=== PATIENT | male | born 1995 | race Caucasian/White ===

== ENCOUNTER 2021-07-20 18:55 | Emergency (ER) | payer MEDICAID, SELFPAY ==
--- NOTE | ~2021-07-20 | XR_ITS ---
EXAMINATION: XR CHEST CLINICAL INFORMATION: Shortness of breath and productive cough COMPARISON: None TECHNIQUE: Frontal view of the chest was obtained. FINDINGS: Patchy airspace opacities are evident in the right perihilar region extending into the right upper lobe. The left lung is clear. The cardiac silhouette is not enlarged. Right paratracheal soft tissue presumably reflects reactive adenopathy. XR/XR chest 1V IMPRESSION: Right upper lobe pneumonia and probable reactive adenopathy. Close Follow-up is recommended to confirm clearing. If findings persist, thoracic CT would be recommended.
[2021-07-20 19:56] VITALS: BP 112/73; PULSE 68; RESP 18; TEMP 37; O2SAT 95; BMI 29.1
[2021-07-20 20:59] LABS: MANUAL DIFF FLAG NO
[2021-07-20 21:00] LABS: Basophils Percent Auto 0.5 % (0-2); Eosinophils Absolute Auto 0.8 X10*3/uL (0.0-0.4); Hematocrit 37.6 % (42.0-52.0); Hemoglobin 12.9 g/dl (14.0-18.0); Imm Gran Abs Auto 0.02 X10*3/uL (0.00-0.03); Imm Gran Pct Auto 0.2 % (0.0-0.4); Lymphocytes Absolute Auto 1.7 X10*3/uL (1.2-4.9); Lymphocytes Percent Auto 20.8 % (20-40); Mean Corpuscular HGB Conc 34.3 g/dl (31.0-36.0); Mean Corpuscular Hemoglobin 29.8 pg (27.0-33.0); Mean Corpuscular Volume 86.8 fL (80.0-98.0); Mean Platelet Volume 9.8 fL (9.4-12.4); Monocytes Absolute Auto 0.8 X10*3/uL (0.1-1.2); Monocytes Percent Auto 9.1 % (2-11); Neutrophils Absolute Auto 4.9 x10*3/uL (2.0-8.3); Neutrophils Percent Auto 59.4 % (45-73); Platelet Count 251 X10*3/uL (160-400); Red Blood Count 4.33 X10*6/uL (4.60-5.80); Red Cell Distribution Width 12.1 % (11.0-16.0); White Blood Count 8.2 X10*3/uL (4.8-10.8)
[2021-07-20 21:23] LABS: Anion Gap 13 (12-20); Calcium 9.2 mg/dL (8.4-10.2); Carbon Dioxide 26 mmol/L (22-29); Chloride 104 mmol/L (96-108); Potassium 4.3 mmol/L (3.3-5.1); Sodium 139 mmol/L (135-145)
[2021-07-20 21:32] LABS: Blood Urea Nitrogen 15 mg/dL (9-16); Creatinine Clr Calc Pharmacy 143.7; Estimated Glomerular Filt Rate > 60; Glucose Random 106 mg/dL (60-115)
--- NOTE | 2021-07-20 22:27 | ED.SOB ---
HPI - SOB/Dyspnea General Chief Complaint: Dyspnea Stated Complaint: SOB Time Seen by Provider: 07/20/21 22:13 Related Data Allergies Allergy/AdvReac Type Severity Reaction Status Date / Time No Known Allergies Allergy Verified 07/20/21 20:02 Physical Exam Vital Signs: Vital Signs: Last Vital Signs Temp 98.6 F 07/20/21 19:56 Pulse 68 07/20/21 19:56 Resp 18 07/20/21 19:56 BP 112/73 07/20/21 19:56 Pulse Ox 95 07/20/21 19:56 BMI result Body Mass Index 29.1 Course Course Course Narrative: 26-year-old male who presents emergency department with flu-like illness. Patient had laboratory evaluation a chest x-ray which was concerning for right upper lobe pneumonia. I went into the room to evaluate the patient and he had left without being seen. He was also here with his girlfriend who was patient. I did reach both the patient and his girlfriend and they did agree to come back to the emergency department to be re-evaluated. MDM - SOB/Dyspnea Lab Data Result diagrams: 07/20/21 20:53 07/20/21 20:53 Labs: Lab Results 07/20/21 07/20/21 Range/Units 20:53 20:53 WBC 8.2 (4.8-10.8) X10*3/uL RBC 4.33 L (4.60-5.80) X10*6/uL Hgb 12.9 L (14.0-18.0) g/dl Hct 37.6 L (42.0-52.0) % MCV 86.8 (80.0-98.0) fL MCH 29.8 (27.0-33.0) pg MCHC 34.3 (31.0-36.0) g/dl RDW 12.1 (11.0-16.0) % Plt Count 251 (160-400) X10*3/uL MPV 9.8 (9.4-12.4) fL Immature Gran % (Auto) 0.2 (0.0-0.4) % Neut % (Auto) 59.4 (45-73) % Lymph % (Auto) 20.8 (20-40) % [place] % (Auto) 9.1 (2-11) % Eos % (Auto) 10.0 H (0-4) % Baso % (Auto) 0.5 (0-2) % Lymph # (Auto) 1.7 (1.2-4.9) X10*3/uL [place] # (Auto) 0.8 (0.1-1.2) X10*3/uL Eos # (Auto) 0.8 H (0.0-0.4) X10*3/uL Baso # (Auto) 0.0 (0.0-0.2) X10*3/uL Abs Immat Gran (auto) 0.02 (0.00-0.03) X10*3/uL Absolute Neuts (auto) 4.9 (2.0-8.3) x10*3/uL Absolute Nucleated RBC 0.000 (0.0-0.012) X10*3/uL Nucleated RBC % (auto) 0.0 (0.0-0.2) /100WBC Sodium 139 (135-145) mmol/L Potassium 4.3 (3.3-5.1) mmol/L Chloride 104 (96-108) mmol/L Carbon Dioxide 26 (22-29) mmol/L Anion Gap 13 (12-20) BUN 15 (9-16) mg/dL Creatinine 0.82 (0.5-1.4) mg/dL Estim Creat Clear Calc 143.7 Estimated GFR > 60 Random Glucose 106 (60-115) mg/dL Calcium 9.2 (8.4-10.2) mg/dL Discharge Plan Discharge Clinical Impression: Patient left without being seen Patient Disposition: Left Without Being Seen Interventions: LWBS Worksheet Last Done: 07/20/21 22:23
[2021-07-20 22:35] LABS: COVID-19 Test Negative (Negative); IDNOW Serial# 16C4AD1C; Influenza A Negative (Negative); Influenza B2 Negative (Negative)
== END 2021-07-20 22:40 | disposition left against medical advice (07) ==
PROVIDERS: Emergency Provider Emergency Medicine Emergency Medical Services
DX: R06.02 Shortness of breath (principal); Z20.822 Contact with and (suspected) exposure to COVID-19
CPT/HCPCS: 36415; 71045; 80048; 85025; 87502; 87635; 99281; 99282; 99283; 99284

== ENCOUNTER 2021-07-20 22:41 | Emergency (ER) | payer MEDICAID, SELFPAY ==
[2021-07-20 22:44] VITALS: BP 111/54; PULSE 77; RESP 16; TEMP 36.1; O2SAT 92; BMI 29.0
--- NOTE | 2021-07-21 | ED.SOB ---
HPI - SOB/Dyspnea General Chief Complaint: Dyspnea Stated Complaint: SOB Time Seen by Provider: 07/20/21 23:39 Source: patient Mode of arrival: ambulatory Limitations: no limitations History of Present Illness HPI Narrative: 26-year-old male who presents emergency department for evaluation of cough, shortness of breath, wheezing and fatigue. Patient states he has not been feeling well for approximately 4 weeks. He states that his symptoms have gotten worse over the past week. He states that he has a cough which is occasionally productive of white chunky phlegm occasionally pain phlegm. He states that he feels short of breath and he can hear himself wheeze. He states that he feels short of breath when he walks around. He denied chest pain. He states he is feeling very tired and fatigued. He denied myalgias or arthralgias. He denied nausea, vomiting or diarrhea. The patient does smoke cigarettes and he states that he uses intranasal opiates. He states that 1 year prior he did have a upper respiratory illness and was given an albuterol inhaler. He does not take any medications on a regular basis. MD elicited complaint: shortness of breath and cough Pertinent past history: other (Tobacco use an intranasal opiate use) Onset (ago): week(s) (4) Context: recent illness Timing: constant Severity: moderate Exacerbating factors: exertion and coughing Relieving factors: nothing Known history of: other (Daily tobacco use in intranasal opiate use) Associated symptoms: cough and wheezing Treatment prior to arrival: none Related Data Home oxygen amount: none Previous Rx's Medication Instructions Recorded albuterol sulfate 90 mcg/actuation 2 puff INHALATION Q4-6H PRN #8.5 g 07/21/21 aerosol inhaler (ProAir HFA) albuterol sulfate 90 mcg/actuation 2 puff INHALATION Q4-6H PRN #8.5 g 07/21/21 aerosol inhaler (ProAir HFA) amoxicillin 500 mg tablet 1,000 mg PO Q12H 5 Days #20 tab 07/21/21 azithromycin 250 mg tablet See Rx Instructions PO .COMPLEX #6 07/21/21 (Zithromax Z-Benny) tab prednisone 20 mg tablet 60 mg PO DAILY 5 Days #15 tab 07/21/21 Allergies Allergy/AdvReac Type Severity Reaction Status Date / Time No Known Allergies Allergy Verified 07/20/21 22:47 Review of Systems Review of Systems: Yes all other systems are reviewed and are negative [facility] Past Medical History [facility] Narrative: Past medical history: None. Past surgical history: None . Social history: Patient is homeless. He does smoke cigarettes daily. He denies alcohol use. He uses intranasal opiates daily. Social History Social History Advance Directives: No Advance Directives Information Provided: Yes Physical Exam Vital Signs: Vital Signs: Last Vital Signs Temp 97 F 07/20/21 22:44 Pulse 77 07/20/21 22:44 Resp 16 07/20/21 22:44 BP 111/54 L 07/20/21 22:44 Pulse Ox 92 07/20/21 22:44 BMI result Body Mass Index 29.0 Const: General: cooperative and no acute distress Orientation/consciousness: oriented to person and oriented to place Limitations: no limitations HEENT: Head: Yes normal to inspection, Yes normocephalic and Yes atraumatic Ears: external ears normal General nose exam: Normal external nose present Face and sinus: Yes normal facial exam Mouth: Normal oral and palatal mucosa present Throat: Yes posterior oropharynx normal Eyes: General: appearance normal, both eyes and all related structures Pupils: Equal, round and reactive pupils present Neck: Neck: Yes normal visual inspection, Yes no lymphadenopathy, Yes trachea midline and Yes supple Chest: Chest palpation & inspection: normal inspection of the chest and normal palpation of entire chest wall Resp: Effort & Inspection: normal respiratory effort and able to speak in complete sentences Auscultation: wheezes (Diffuse, bilaterally symmetric) Cardio: Rate: regular rate Rhythm: regular rhythm Heart sounds: S1 normal heart sound present, S2 normal heart sound present and no murmurs GI: Inspection: Yes normal to inspection Palpation (GI): Soft to palpation, nontender and no guarding Auscultation: normal bowel sounds : General: Yes no CVA tenderness Back/Spine/Pelvis: Back: no CVA tenderness Skin: General skin exam: no rashes or lesions noted Neuro: General: oriented to person and oriented to place Cranial nerves: Yes CN's II-XII intact bilaterally and Yes Equal, round and reactive pupils present Cognition (Neuro): normal cognition Motor exam (neuro): 5/5 motor strength present throughout Extrem: General: Yes normal to inspection Psych: Appearance: grossly normal Speech and movement: Normal speech and movement present Affect: normal affect Attitude: cooperative Thought process: Normal thought process present Thought content: Normal thought content present Course Course Course Narrative: 26-year-old male who presents emergency department for evaluation of cough, shortness of breath, wheezing, fatigue x4 weeks with symptoms worse the last 1-2 weeks. The patient is homeless. He does smoke cigarettes daily. Uses intranasal opiates daily. Vital signs revealed an O2 saturation of 92% otherwise were unremarkable. The patient's lung exam did reveal diffuse wheezing. Laboratory evaluation chest x-ray were ordered 0007: Laboratory evaluation revealed a normal CBC and BMP. COVID-19 and influenza were negative. Chest x-ray is concerning for right upper lobe infiltrate. The patient will be treated for community-acquired pneumonia with amoxicillin 1000 mg twice a day for 5 days and Zithromax Z-Benny. Was given his 1st dose his medications here in the emergency department. He is also wheezing therefore he was started on prednisone 60 mg once a day for 5 days and albuterol inhaler 2 puffs every 4 hours as needed. Patient was given printed and verbal instructions and discharged home. Discharge Plan Discharge Clinical Impression: Pneumonia, Acute bronchospasm Patient Disposition: Home, Self-Care Instructions: Community Acquired Pneumonia (DC) Additional Instructions: Your blood work was unremarkable. Your COVID-19 and influenza tests were negative. Your chest x-ray is concerning for a right upper lobe pneumonia. Take amoxicillin 1000 mg, 1 pill twice a day for 5 days Take Zithromax Z-Benny as prescribed. Take prednisone 20 mg pills, 3 pills once a day for 5 days. Use the albuterol inhaler with the spacer, 2 puffs every 4-6 hours as needed for shortness of breath and wheezing. Follow-up with your doctor in 2 days. Please return to the emergency department if your symptoms get worse or if you develop any symptoms that are concerning to you. Prescriptions: New amoxicillin 500 mg tablet 1,000 mg PO Q12H 5 Days Qty: 20 0RF albuterol sulfate [ProAir HFA] 90 mcg/actuation HFA aerosol inhaler 2 puff inhalation Q4-6H PRN (Reason: shortness of breath or wheezing) Qty: 8.5 0RF prednisone 20 mg tablet 60 mg PO DAILY 5 Days Qty: 15 0RF albuterol sulfate [ProAir HFA] 90 mcg/actuation HFA aerosol inhaler 2 puff inhalation Q4-6H PRN (Reason: shortness of breath or wheezing) Qty: 8.5 0RF azithromycin [Zithromax Z-Benny] 250 mg tablet See Rx Instructions PO .COMPLEX Qty: 6 0RF Rx Instructions: take 500 mg today (day 1), then 250 mg for 4 days (days 2-5)
[2021-07-21] MEDS: Azithromycin 500 MG TABLET PO (00:27)
[2021-07-21] MEDS: Amoxicillin 500 MG CAPSULE 1000 MG PO (00:27)
[2021-07-21] MEDS: predniSONE 20 MG TABLET 60 MG PO (00:27)
[2021-07-21] MEDS: Albuterol Sulfate 90 MCG 8 GM INHALER 2 PUFF INHALE (00:29)
== END 2021-07-21 01:32 | disposition home or self-care (01) ==
PROVIDERS: Emergency Provider Emergency Medicine Emergency Medical Services
DX: J18.9 Pneumonia, unspecified organism (principal); J98.01 Acute bronchospasm; F17.210 Nicotine dependence, cigarettes, uncomplicated; F11.90 Opioid use, unspecified, uncomplicated; Z59.02 Unsheltered homelessness
CPT/HCPCS: 99283; 99284

== ENCOUNTER 2022-10-09 02:09 | Emergency (ER) | payer MEDICAID, SELFPAY ==
[2022-10-09 02:24] VITALS: BP 124/61; PULSE 80; RESP 16; TEMP 36.6; O2SAT 98; BMI 28.7
--- NOTE | 2022-10-09 03:57 | ED_ITS ---
HPI - Skin/Abscess/Foreign Bdy General Chief complaint: Skin/Abscess/Foreign Body Stated complaint: abscess Time Seen by Provider: 10/09/22 03:52 Source: patient Mode of arrival: ambulatory Limitations: no limitations History of Present Illness HPI narrative: Patient complaining of multiple abscesses for last few days 1 on the right hand, upper back and the occipital area. Does not know the etiology no history of MRSA in the past patient denied any IVDA drug Related Data Previous Rx's Medication Instructions Recorded albuterol sulfate 90 mcg/actuation 2 puff inhalation Q4-6H PRN 07/21/21 aerosol inhaler (ProAir HFA) shortness of breath or wheezing #8.5 grams albuterol sulfate 90 mcg/actuation 2 puff inhalation Q4-6H PRN 07/21/21 aerosol inhaler (ProAir HFA) shortness of breath or wheezing #8.5 grams amoxicillin 500 mg tablet 1,000 mg PO Q12H 5 days #20 tabs 07/21/21 azithromycin 250 mg tablet See Rx Instructions PO .COMPLEX #6 07/21/21 (Zithromax Z-Benny) tabs prednisone 20 mg tablet 60 mg PO DAILY 5 days #15 tabs 07/21/21 cephalexin 500 mg capsule 500 mg PO QID 10 days #40 caps 10/09/22 doxycycline hyclate 100 mg tablet 100 mg PO BID #20 tabs 10/09/22 ibuprofen 600 mg tablet 600 mg PO Q6H PRN fever or pain 10/09/22 #30 tabs Allergies Allergy/AdvReac Type Severity Reaction Status Date / Time No Known Allergies Allergy Verified 07/20/21 22:47 Review of Systems Review of Systems: Yes all other systems are reviewed and are negative PMFSH Social History Social History Advance Directives: No Advance Directives Information Provided: No Physical Exam Vital Signs: Vital Signs: Last Vital Signs Temp 97.8 F 10/09/22 02:24 Pulse 80 10/09/22 02:24 Resp 16 10/09/22 02:24 BP 124/61 10/09/22 02:24 Pulse Ox 98 10/09/22 02:24 O2 Del Method Room Air 10/09/22 02:24 BMI result Body Mass Index 28.7 Extrem: Shoulder/upper arm images: 1. Small abscess with induration Hand/finger images: 1. Abscess with induration and surrounding cellulitis Procedures Abscess I/D Site: hand Side (if applicable): right Local Anesthetic: lidocaine 1% Amount of anesthesia used (mL): 5 Technique: incised with blade Amount of fluid expressed (mL): 2 Sent for culture/gram staining?: Yes Irrigation: No Packing used?: none Discharge Plan Discharge Clinical Impression: Abscess of skin or subcutaneous tissue Patient Disposition: Home, Self-Care Instructions: Abscess Incision and Drainage (DC) Additional Instructions: Local care as advised Take antibiotic as prescribed Follow with PCP as needed Prescriptions: New cephalexin 500 mg capsule 500 mg PO QID 10 Days Qty: 40 0RF ibuprofen 600 mg tablet 600 mg PO Q6H PRN (Reason: fever or pain) Qty: 30 0RF doxycycline hyclate 100 mg tablet 100 mg PO BID Qty: 20 0RF No Action amoxicillin 500 mg tablet 1,000 mg PO Q12H 5 Days Qty: 20 0RF albuterol sulfate [ProAir HFA] 90 mcg/actuation HFA aerosol inhaler 2 puff inhalation Q4-6H PRN (Reason: shortness of breath or wheezing) Qty: 8. 5 0RF prednisone 20 mg tablet 60 mg PO DAILY 5 Days Qty: 15 0RF albuterol sulfate [ProAir HFA] 90 mcg/actuation HFA aerosol inhaler 2 puff inhalation Q4-6H PRN (Reason: shortness of breath or wheezing) Qty: 8.5 0RF azithromycin [Zithromax Z-Benny] 250 mg tablet See Rx Instructions PO .COMPLEX Qty: 6 0RF Rx Instructions: take 500 mg today (day 1), then 250 mg for 4 days (days 2-5)
[2022-10-09 04:00] VITALS: BP 130/67; PULSE 88; RESP 12; O2SAT 95
[2022-10-09] MEDS: cephALEXin 500 MG CAPSULE PO (04:48)
[2022-10-09] MEDS: Doxycycline Monohydrate 100 MG CAPSULE PO (04:48)
[2022-10-09] MEDS: Lidocaine HCl 1 % MPF 5 ML VIAL 10 ML INFILTRATI (04:49)
--- NOTE | 2022-10-09 05:00 | PC.NURSE ---
pt medicated according to mar. pt partner at bedside. wounds wrapped cms intact. pt provided with discharge packet. pt verbalized understanding of discharge plan
--- NOTE | 2022-10-09 05:35 | PC.NURSE ---
security at standby. pt and partner continue to fall asleep and fail. to exit room after discharge. pt reminded of discharge status. pt and partner ambulatory at discharge
== END 2022-10-09 05:40 | disposition home or self-care (01) ==
PROVIDERS: Emergency Provider Internal Medicine
DX: L02.511 Cutaneous abscess of right hand (principal); L02.212 Cutaneous abscess of back [any part, except buttock and flank]; L02.01 Cutaneous abscess of face; Z79.899 Other long term (current) drug therapy
CPT/HCPCS: 10060; 87070; 87077; 87186; 87205; 99284